=== PATIENT | female | born 1955 | race Caucasian/White ===

== ENCOUNTER 2016-12-22 08:27 | Day surgery (SDC) | payer OTHER ==
[~2016-12-22] VITALS: Ht 157.5 cm; Wt 100.7 kg
[~2016-12-22 08:27] MED LIST: ALBUTEROL2.5 MG/3 M IH; ASPIR-LOW81 MG PO; ATIVAN0.5 MG PO; COUMADIN4 MG PO; COUMADIN5 MG PO; CYANOCOBALAM1000 MCG PO; DICLOXACILLIN500 MG PO; FISH OIL 1,0001 EAC7 PO; FLONASE16 G1 BOTH NARES; FOLIC ACID0.4 MG PO; HUMALOG100 UNIT/2 SC; HYDRALAZINE HCL10 MG PO; IRON325 M1 PO; LANTUS 10100 UNITS/ SC; LEVOXYL100 MCG PO; LOPRESSOR25 MG PO; METHOCARBAMOL750 MG PO; NEURONTIN300 MG PO; NITROSTAT0.4 MG SL; NORTRIPTYLINE H25 MG PO; PAXIL10 MG PO; PLAQUENIL200 MG PO; PRAVACHOL20 MG PO; PROVENTIL,2.5 MG/0.5 AEROSOL; ROXICODONE5 MG PO; VITAMIN D400 UNI1 PO; WARFARIN SODIUM4 MG PO; XANAX0.5 MG PO; ZANTAC150 MG PO
[2016-12-22 09:08] LABS: POINT-OF-CARE METER ID UU13113696
[2016-12-22 10:18] LABS: METH RESISTANT S AUREUS PCR NEGATIVE (NEGATIVE)
[2016-12-22 10:21] LABS: PROBE CHECK PASS; SPECIMEN PROCESSING CONTROL PASS
== END 2016-12-22 13:50 | disposition home or self-care (01) ==
LOC: CATH 08:27
PROVIDERS: Surgery
DX: T82.868A Thrombosis due to vascular prosthetic devices, implants and grafts, initial encounter (principal); T82.858A Stenosis of other vascular prosthetic devices, implants and grafts, initial encounter; Y83.2 Surgical operation with anastomosis, bypass or graft as the cause of abnormal reaction of the patient, or of later complication, without mention of misadventure at the time of the procedure; I12.0 Hypertensive chronic kidney disease with stage 5 chronic kidney disease or end stage renal disease; E11.22 Type 2 diabetes mellitus with diabetic chronic kidney disease; N18.6 End stage renal disease; Z99.2 Dependence on renal dialysis; M19.90 Unspecified osteoarthritis, unspecified site; E03.9 Hypothyroidism, unspecified; I25.10 Atherosclerotic heart disease of native coronary artery without angina pectoris; Z95.1 Presence of aortocoronary bypass graft; Z79.82 Long term (current) use of aspirin; Z79.4 Long term (current) use of insulin; Z82.49 Family history of ischemic heart disease and other diseases of the circulatory system; Z83.3 Family history of diabetes mellitus; Z82.3 Family history of stroke; Z80.8 Family history of malignant neoplasm of other organs or systems
CPT/HCPCS: 82948; 87641; C1750; C1757; C1769; C1894; C2628; J0360; J0690; J1644; J2250; J2405; J2720; J3010; J7050; S0020

== ENCOUNTER 2016-12-31 10:22 | Day surgery (SDC) | payer OTHER ==
[~2016-12-31] VITALS: Ht 157.5 cm; Wt 103.6 kg
[~2016-12-31 10:22] MED LIST changes: +COUMADIN2 MG PO; +COUMADIN3 MG PO
[2016-12-31 11:16] LABS: HEMATOCRIT 30.4 % (36.0-46.0); MCH 29.2 PG (29.0-34.0); MCHC 30.6 G/DL (30.0-36.0); MCV 95.3 FL (83-99); MEAN PLAT.VOLUME 10.9 uM^3 (9.5-12.4); NRBC (%) 0.3 /100 WBC (0-0); PLATELET COUNT 126 K/uL (156-360); RBC DIS.WIDTH-CV 15.3 % (11.8-14.6); RBC DIS.WIDTH-SD 52.3 % (39-53); RED BLOOD COUNT 3.19 M/uL (3.80-5.20); WHITE BLOOD COUNT 7.3 K/uL (4.1-10.2)
[2016-12-31 11:18] LABS: INTER. NORMALIZED RATIO 1.3; PROTHROMBIN TIME 13.8 (9.2-11.2)
[2016-12-31 11:26] LABS: ANION GAP 11 MEQ/L (2-14); CHLORIDE 100 MEQ/L (99-109); POTASSIUM 4.7 MEQ/L (3.7-5.4); SAMPLE HEMOLYSIS CHECK 0; SAMPLE ICTERIC CHECK 0; SAMPLE LIPEMIA CHECK 0; SODIUM 136 MEQ/L (136-147)
[2016-12-31 11:31] LABS: GFR ESTIMATE (CALCULATED) 12 mL/min/; GLUCOSE 321 mg/dL (70-99); UREA NITROGEN (BUN) 39 mg/dL (9-23)
[2016-12-31 11:33] VITALS: BP 205/93
[2016-12-31 12:21] LABS: METH RESISTANT S AUREUS PCR NEGATIVE (NEGATIVE)
[2016-12-31 12:22] LABS: PROBE CHECK PASS; SPECIMEN PROCESSING CONTROL PASS
[2016-12-31 13:02] LABS: POINT-OF-CARE METER ID UU14174212
[2016-12-31 16:56] LABS: POINT-OF-CARE METER ID UU13113675
[2016-12-31 17:30] VITALS: BP 108/54
[2016-12-31 18:30] VITALS: BP 130/60
[2016-12-31 19:05] VITALS: BP 122/58
== END 2016-12-31 19:16 | disposition home or self-care (01) ==
LOC: SDC 10:22
PROVIDERS: Surgery
PROC: 03180JD Bypass Left Brachial Artery to Upper Arm Vein with Synthetic Substitute, Open Approach (ICD-10-PCS; principal; 2016-12-31)
PROC: 05WY07Z Revision of Autologous Tissue Substitute in Upper Vein, Open Approach (ICD-10-PCS; principal; 2016-12-31)
PROC: B51W1ZZ Fluoroscopy of Dialysis Shunt/Fistula using Low Osmolar Contrast (ICD-10-PCS; principal; 2016-12-31)
PROC: 03B Upper Arteries, Excision (ICD-10-PCS; principal; 2016-12-31)
DX: T82.868A Thrombosis due to vascular prosthetic devices, implants and grafts, initial encounter (principal); T82.858A Stenosis of other vascular prosthetic devices, implants and grafts, initial encounter; Y83.2 Surgical operation with anastomosis, bypass or graft as the cause of abnormal reaction of the patient, or of later complication, without mention of misadventure at the time of the procedure; I13.11 Hypertensive heart and chronic kidney disease without heart failure, with stage 5 chronic kidney disease, or end stage renal disease; E11.22 Type 2 diabetes mellitus with diabetic chronic kidney disease; N18.6 End stage renal disease; Z99.2 Dependence on renal dialysis; I25.10 Atherosclerotic heart disease of native coronary artery without angina pectoris; Z95.1 Presence of aortocoronary bypass graft; E03.9 Hypothyroidism, unspecified; Z79.82 Long term (current) use of aspirin; Z79.4 Long term (current) use of insulin; E78.00 Pure hypercholesterolemia, unspecified; E66.9 Obesity, unspecified; Z68.41 Body mass index [BMI] 40.0-44.9, adult
CPT/HCPCS: 80048; 82948; 85027; 85610; 86850; 86900; 86901; 86920; 87070; 87075; 87205; 87641; C1750; C1757; C1769; J0131; J0690; J1170; J1644; J2250; J2720; J2765

== ENCOUNTER 2017-01-17 13:29 | Day surgery (SDC) | payer OTHER ==
[2017-01-17 14:29] LABS: POINT-OF-CARE METER ID UU13113696
[2017-01-17 15:43] LABS: METH RESISTANT S AUREUS PCR NEGATIVE (NEGATIVE)
[2017-01-17 15:51] LABS: PROBE CHECK PASS; SPECIMEN PROCESSING CONTROL PASS
== END 2017-01-17 16:25 | disposition home or self-care (01) ==
LOC: CATH 13:29
PROVIDERS: Surgery
DX: T82.868A Thrombosis due to vascular prosthetic devices, implants and grafts, initial encounter (principal); T82.858A Stenosis of other vascular prosthetic devices, implants and grafts, initial encounter; Y83.2 Surgical operation with anastomosis, bypass or graft as the cause of abnormal reaction of the patient, or of later complication, without mention of misadventure at the time of the procedure; N18.6 End stage renal disease; Z99.2 Dependence on renal dialysis
CPT/HCPCS: 82948; 87641; C1725; C1757; C1769; C1894; C2628; J0690; J1644; J2250; J3010; S0020

== ENCOUNTER 2017-02-12 09:59 | Day surgery (SDC) | payer OTHER ==
[~2017-02-12] VITALS: Ht 157.5 cm; Wt 97.4 kg
[2017-02-12 10:15] VITALS: BP 180/77
[2017-02-12 11:50] LABS: PROTHROMBIN TIME 34.9 (9.2-11.2)
[2017-02-12 11:54] LABS: INTER. NORMALIZED RATIO 3.3
[2017-02-12 12:10] VITALS: BP 178/76
[2017-02-12 12:15] LABS: ANION GAP 12 MEQ/L (2-14); CHLORIDE 98 MEQ/L (99-109); GFR ESTIMATE (CALCULATED) 11 mL/min/; GLUCOSE 331 mg/dL (70-99); POTASSIUM 3.8 MEQ/L (3.7-5.4); SAMPLE HEMOLYSIS CHECK 0; SAMPLE ICTERIC CHECK 0; SAMPLE LIPEMIA CHECK 0; SODIUM 137 MEQ/L (136-147); UREA NITROGEN (BUN) 35 mg/dL (9-23)
[2017-02-12 14:48] LABS: POINT-OF-CARE METER ID UU13113675
[2017-02-12 16:11] LABS: POINT-OF-CARE METER ID UU13113675
[2017-02-12 16:25] VITALS: BP 144/63
== END 2017-02-12 19:30 | disposition home or self-care (01) ==
LOC: SDC 09:59 → 2EAST 10:03
PROVIDERS: Surgery
DX: T82.868A Thrombosis due to vascular prosthetic devices, implants and grafts, initial encounter (principal); I12.0 Hypertensive chronic kidney disease with stage 5 chronic kidney disease or end stage renal disease; E11.22 Type 2 diabetes mellitus with diabetic chronic kidney disease; N18.6 End stage renal disease; Z99.2 Dependence on renal dialysis; Z86.718 Personal history of other venous thrombosis and embolism; Z95.1 Presence of aortocoronary bypass graft; Z79.01 Long term (current) use of anticoagulants; Z82.49 Family history of ischemic heart disease and other diseases of the circulatory system; Z83.3 Family history of diabetes mellitus; Y83.2 Surgical operation with anastomosis, bypass or graft as the cause of abnormal reaction of the patient, or of later complication, without mention of misadventure at the time of the procedure
CPT/HCPCS: 80048; 82948; 85610; 93005; C1725; C1757; C1769; C1894; C2628; G0378; J0131; J0690; J1644; J1815; J2250; J2405

== ENCOUNTER 2018-06-13 06:53 | Day surgery (SDC) | payer OTHER ==
[~2018-06-13] VITALS: Ht 157.5 cm; Wt 93.0 kg
[~2018-06-13 06:53] MED LIST changes: +BIOTIN1 MG PO; +LIDOCAINE5 GM TP; +VENTOLIN HFA18 GM IH; +VITAMIN D34000 UNIT PO; +ZEMPLAR 22 MCG/1 ML IV; +ZOFRAN4 MG PO
[2018-06-13] MEDS ORDERED: NORCO 5/3251 TABLET PO ×2 (10:10→10:20)
== END 2018-06-13 11:20 | disposition home or self-care (01) ==
LOC: CATH 06:53
PROVIDERS: Surgery
PROC: 3E03317 Introduction of Other Thrombolytic into Peripheral Vein, Percutaneous Approach (ICD-10-PCS; principal; 2018-06-13)
PROC: 05HY33Z Insertion of Infusion Device into Upper Vein, Percutaneous Approach (ICD-10-PCS; principal; 2018-06-13)
PROC: B51W1ZZ Fluoroscopy of Dialysis Shunt/Fistula using Low Osmolar Contrast (ICD-10-PCS; principal; 2018-06-13)
PROC: 057 Upper Veins, Dilation (ICD-10-PCS; principal; 2018-06-13)
PROC: 05CY0ZZ Extirpation of Matter from Upper Vein, Open Approach (ICD-10-PCS; principal; 2018-06-13)
DX: T82.858A Stenosis of other vascular prosthetic devices, implants and grafts, initial encounter (principal); Y83.2 Surgical operation with anastomosis, bypass or graft as the cause of abnormal reaction of the patient, or of later complication, without mention of misadventure at the time of the procedure; N18.6 End stage renal disease; Z99.2 Dependence on renal dialysis; Z79.01 Long term (current) use of anticoagulants
CPT/HCPCS: 82948; 87641; C1725; C1757; C1769; C1874; C1887; C1894; J0690; J1644; J2250; J3010; S0020

== ENCOUNTER 2018-06-20 07:02 | Day surgery (SDC) | payer OTHER ==
[~2018-06-20 07:02] MED LIST changes: +FOLGARD1 TABLET PO; +NORCO 5/3251 TABLET PO
== END 2018-06-20 10:14 | disposition home or self-care (01) ==
LOC: CATH 07:02
PROVIDERS: Surgery
DX: T82.868A Thrombosis due to vascular prosthetic devices, implants and grafts, initial encounter (principal); Y83.2 Surgical operation with anastomosis, bypass or graft as the cause of abnormal reaction of the patient, or of later complication, without mention of misadventure at the time of the procedure; I12.0 Hypertensive chronic kidney disease with stage 5 chronic kidney disease or end stage renal disease; E11.22 Type 2 diabetes mellitus with diabetic chronic kidney disease; N18.6 End stage renal disease; Z99.2 Dependence on renal dialysis; I25.2 Old myocardial infarction; Z88.0 Allergy status to penicillin; Z88.2 Allergy status to sulfonamides
CPT/HCPCS: 82948; 87641; C1725; C1757; C1769; C1894; C2628; J0690; J1644; J2250; J3010; S0020